=== PATIENT | female | born 1955 | race American Indian/Alaskan Native ===

== ENCOUNTER 2019-07-06 10:04 | Outpatient (CLI) | payer OTHER ==
--- NOTE | 2019-07-06 11:21 | Mammography Report ---
DIGITAL BILATERAL DIAGNOSTIC MAMMOGRAM WITH CAD, 07/06/2019 INDICATION: History of left breast cancer status post left mastectomy and right breast augmentation. TECHNIQUE: Digital bilateral mammographic imaging was performed. Implant displaced views were perfor med on the right. This examination was interpreted with the benefit of Computer-aided Detection randi sis. COMPARISON: 06/05/2018 Breast Density: The right breast is heterogeneously dense, which may obscure small masses. FINDINGS: No mass, architectural distortion or suspicious calcifications. Bilateral implants in place . IMPRESSION: No mammographic evidence of malignancy. Follow up recommendation: Routine BI-RADS Category 2: Benign. A "normal" or negative report should not discourage follow up or biopsy of a clinically significant f inding. A written summary of these findings will be mailed to the patient. The patient will be entered into a mammography reporting system which will generate a reminder letter for the patient's next appointmen t at the appropriate interval. According to the [employer], yearly mammograms are recommended starting at age 40 and continuing as long as a woman is in good health. Breast MRI is recommended for women with an logan roximately 20-25% or greater lifetime risk of breast cancer, including women with a strong family his tory of breast or ovarian cancer and women who have been treated for Hodgkin's disease. Signer Name: Kayode Dickerson MD Signed: 07/06/2019 11:17 AM Workstation Name: [id number]
== END 2019-07-06 10:05 | disposition home or self-care (01) ==
LOC: MAMMO 10:04
DX: R92.8 Other abnormal and inconclusive findings on diagnostic imaging of breast (principal); Z90.12 Acquired absence of left breast and nipple; Z85.3 Personal history of malignant neoplasm of breast
CPT/HCPCS: 77066

== ENCOUNTER 2019-08-06 10:36 | Emergency (ER) | payer OTHER ==
[2019-08-06 10:50] VITALS: BP 143/86
--- NOTE | 2019-08-06 11:44 | Cat Scan Report ---
CT HEAD WITHOUT CONTRAST INDICATION : dizziness/headache after fall. TECHNIQUE: Axial, coronal and sagittal CT imaging was performed from the skull apex through the skul l base without contrast. All CT scans at this location are performed using CT dose reduction for ALA RA by means of automated exposure control. COMPARISON: None available. FINDINGS: PARENCHYMA: No mass, midline shift, hemorrhage, extraaxial collection or acute territorial infarctio n. Basal ganglial calcifications are seen bilaterally. VENTRICLES: No significant abnormality. SOFT TISSUES: Soft tissues including the orbits appear normal. BONES: No acute osseous abnormality. SINUSES: No significant abnormality. ADDITIONAL FINDINGS: None. IMPRESSION: No acute intracranial abnormality. Signer Name: Luiz Vanessa MD Signed: 08/06/2019 11:40 AM Workstation Name: [id number]
--- NOTE | 2019-08-06 13:17 | Cat Scan Report ---
CT CERVICAL SPINE WITHOUT CONTRAST HISTORY: Pain after fall. COMPARISON: None TECHNIQUE: CT images of the cervical spine were obtained without contrast. Sagittal and coronal refo rmats were post-processed. Note: All CT scans at this location are performed using CT dose reduction employed for ALARA by means of automated exposure control. CONTRAST: None. FINDINGS: Alignment: Normal. Vertebrae:No significant abnormality. Disc Spaces: No significant abnormality allowing for lack of intrathecal contrast. Facet Joints:No significant abnormality. Craniocervical Junction:No significant abnormality. Prevertebral Soft Tissues:No significant abnormality. Lung Apices: No significant abnormality. Additional Findings: None IMPRESSION: 1. No significant abnormality. Signer Name: Kayode Dickerson MD Signed: 08/06/2019 1:13 PM Workstation Name: [id number]
--- NOTE | 2019-08-06 13:32 | Emergency Department Report ---
ED Fall HPI - General Chief Complaint: Fall Stated Complaint: FALL, LUMP ON HEAD Time Seen by Provider: 08/06/19 13:05 Source: patient Mode of arrival: Ambulatory - History of Present Illness Initial Comments: Patient is 63 years old female presented to the ER for evaluation after a fall. Patient stated that she fell over a hover board. Patient denied any loss of consciousness, nausea, vomiting or dizziness. Patient is complaining of pain to the back of the head and neck pain. Patient denied any other injuries. Family stated that patient was a little bit confused after the fall but now patient is alert, oriented 3 in in no acute distress. Complaint: fall -: This morning Fall Witnessed: yes, by family Location: head, neck Context: tripped/slipped - Related Data Allergies Allergy/AdvReac Type Severity Reaction Status Date / Time No Known Allergies Allergy Unverified 05/16/18 08:22 ED Review of Systems ROS: Stated complaint: FALL, LUMP ON HEAD Other details as noted in HPI Comment: All other systems reviewed and negative Constitutional: denies: chills Respiratory: denies: cough, shortness of breath Cardiovascular: denies: chest pain, palpitations Musculoskeletal: denies: back pain Neurological: denies: headache, weakness, numbness, paresthesias, confusion, abnormal gait ED Past Medical Hx - Past Medical History Previous Medical History?: Yes Hx Hypertension: Yes Hx of Cancer: Yes (breast) Hx Asthma: Yes Additional medical history: vertigo - Surgical History Past Surgical History?: Yes Hx Breast Surgery: Yes Additional Surgical History: x 5 - Social History Smoking Status: Never Smoker Substance Use Type: None ED Physical Exam - General Limitations: No Limitations General appearance: alert, in no apparent distress - Head Head exam: Present: atraumatic, normocephalic, normal inspection - Eye Eye exam: Present: normal appearance, PERRL - ENT ENT exam: Present: normal exam, normal orophraynx, mucous membranes moist - Neck Neck exam: Present: normal inspection, full ROM. Absent: tenderness, meningismus, lymphadenopathy, thyromegaly - Respiratory Respiratory exam: Present: normal lung sounds bilaterally - Cardiovascular Cardiovascular Exam: Present: regular rate, normal rhythm, normal heart sounds - GI/Abdominal GI/Abdominal exam: Present: soft, normal bowel sounds. Absent: distended, tenderness, guarding, rebound, rigid, organomegaly, mass, bruit, pulsatile mass, hernia - Extremities Exam Extremities exam: Present: normal inspection, full ROM, normal capillary refill. Absent: tenderness, pedal edema, joint swelling, calf tenderness - Back Exam Back exam: Present: normal inspection, full ROM. Absent: CVA tenderness (R), CVA tenderness (L), muscle spasm, paraspinal tenderness, vertebral tenderness - Neurological Exam Neurological exam: Present: alert, oriented X3, CN II-XII intact, normal gait, reflexes normal - Psychiatric Psychiatric exam: Present: normal mood - Skin Skin exam: Present: warm, intact, normal color ED Course Vital Signs 08/06/19 10:48 Temperature 98.9 F Pulse Rate 77 Respiratory 16 Rate Blood Pressure 143/86 O2 Sat by Pulse 96 Oximetry ED Medical Decision Making - Radiology Data Radiology results: report reviewed - Medical Decision Making Patient is 63 years old female presented to the ER for evaluation after a fall. Patient stated that she fell over a hover board. Patient denied any loss of consciousness, nausea, vomiting or dizziness. Patient is complaining of pain to the back of the head and neck pain. Patient denied any other injuries. Family stated that patient was a little bit confused after the fall but now patient is alert, oriented 3 in in no acute distress. Patient remained stable in the ER. Patient is alert and oriented 3. CT brain and CT cervical neck is negative for acute finding. Patient advised to follow- up with her primary care physician in the next 2-3 days and to return to the ER if she developed any new symptoms. Critical care attestation.: If time is entered above; I have spent that time in minutes in the direct care of this critically ill patient, excluding procedure time. ED Disposition Clinical Impression: Fall, Head injury, Neck pain Disposition: -01 TO HOME OR SELFCARE Is pt being admited?: No Condition: Stable Instructions: Minor Head Injury (ED), Fall Prevention (ED) Referrals: PRIMARY CARE,MD [Primary Care Provider] - 3-5 Days
== END 2019-08-06 13:45 | disposition home or self-care (01) ==
LOC: ED 10:36
DX: S09.90XA Unspecified injury of head, initial encounter (principal); M54.2 Cervicalgia; I10 Essential (primary) hypertension; J45.909 Unspecified asthma, uncomplicated; Z98.890 Other specified postprocedural states; Z85.3 Personal history of malignant neoplasm of breast; W01.0XXA Fall on same level from slipping, tripping and stumbling without subsequent striking against object, initial encounter; Y93.89 Activity, other specified; Y92.89 Other specified places as the place of occurrence of the external cause; Y99.8 Other external cause status
CPT/HCPCS: 70450; 72125

== ENCOUNTER 2020-03-05 04:41 | Emergency (ER) | payer OTHER ==
[2020-03-05 05:37] LABS: Basophils # (Auto) 0.1 K/mm3 (0.0-0.1); Eosinophils # (Auto) 0.3 K/mm3 (0.0-0.4); Eosinophils % (Auto) 4.1 % (0.0-4.3); Hematocrit 27.6 % (30.3-42.9); Hemoglobin 8.8 gm/dl (10.1-14.3); Lymphocytes # (Auto) 0.8 K/mm3 (1.2-5.4); Lymphocytes % (Auto) 10.8 % (13.4-35.0); Mean Corpuscular HGB Conc 32 % (30-34); Mean Corpuscular Volume 77 fl (79-97); Monocytes # (Auto) 0.8 K/mm3 (0.0-0.8); Monocytes % (Auto) 10.3 % (0.0-7.3); Platelet Count 349 K/mm3 (140-440); Red Blood Count 3.59 M/mm3 (3.65-5.03); Red Cell Distribution Width 16.7 % (13.2-15.2)
[2020-03-05 05:58] LABS: Alanine Aminotransferase 6 units/L (7-56); Albumin 4.1 g/dL (3.9-5); BUN/Creatinine Ratio 20; Blood Urea Nitrogen 16 mg/dL (7-17); Calcium 9.4 mg/dL (8.4-10.2); Hemolysis Index 5
[2020-03-05 07:30] LABS: Bacteria,Urine 2+ /HPF (Negative); Bilirubin,Urine NEG (Negative); Blood,Urine SM (Negative); Color,Urine Yellow (Yellow); Mucus,Urine FEW /HPF; Protein,Urine <15 mg/dL mg/dL (Negative); Urobilinogen,Urine < 2.0 mg/dL (<2.0)
[2020-03-05] MEDS ORDERED: ONDANSETRON 4 MG/2 ML INJ IV ONE (08:33)
[2020-03-05] MEDS ORDERED: MORPHINE 4 MG/1 ML INJ IV ONE (08:33)
--- NOTE | 2020-03-05 08:36 | Emergency Department Report ---
ED Abdominal Pain HPI - General Chief Complaint: Abdominal Pain Stated Complaint: HERNIA,SWELLING IN THE LEFT LEG Time Seen by Provider: 03/05/20 08:03 Source: patient, family Mode of arrival: Ambulatory Limitations: No Limitations - History of Present Illness Initial Comments: Patient is 64 years old female with history of hypertension and asthma. Patient presented to the ER complaining of abdominal pain and right groin swelling. Patient stated that the knot started approximately July 2019 but for the last few days it became more swollen and tender. Patient rated her pain as 10 out of 10. Patient denied any nausea or vomiting. No chest pain or shortness of breath. Patient also denied any fever or chills. Patient is complaining of left leg swelling started 3 days ago. Patient denied any recent immobilization. MD Complaint: abdominal pain - Related Data Previous Rx's Medication Instructions Recorded Last Taken Type Naproxen [Naprosyn] 500 mg PO BID #14 tablet 08/06/19 Unknown Rx Allergies Allergy/AdvReac Type Severity Reaction Status Date / Time No Known Allergies Allergy Unverified 05/16/18 08:22 ED Review of Systems ROS: Stated complaint: HERNIA,SWELLING IN THE LEFT LEG Other details as noted in HPI Comment: All other systems reviewed and negative Constitutional: denies: chills, fever Respiratory: denies: cough, shortness of breath, SOB with exertion, SOB at rest, wheezing Cardiovascular: denies: chest pain, palpitations Gastrointestinal: abdominal pain. denies: nausea, vomiting, diarrhea, constipation, hematemesis, melena, hematochezia Musculoskeletal: denies: back pain ED Past Medical Hx - Past Medical History Previous Medical History?: Yes Hx Hypertension: Yes Hx Asthma: Yes Additional medical history: vertigo - Surgical History Past Surgical History?: Yes Hx Breast Surgery: Yes Additional Surgical History: x 5 - Social History Smoking Status: Never Smoker Substance Use Type: None - Medications Home Medications: Home Medications Medication Instructions Recorded Confirmed Last Taken Type Naproxen [Naprosyn] 500 mg PO BID #14 tablet 08/06/19 Unknown Rx ED Physical Exam - General Limitations: No Limitations General appearance: alert, in no apparent distress - Head Head exam: Present: atraumatic, normocephalic, normal inspection - Eye Eye exam: Present: normal appearance - ENT ENT exam: Present: normal exam, normal orophraynx, mucous membranes moist - Neck Neck exam: Present: normal inspection, full ROM. Absent: tenderness, meningismus, lymphadenopathy, thyromegaly - Respiratory Respiratory exam: Present: normal lung sounds bilaterally - Cardiovascular Cardiovascular Exam: Present: regular rate, normal rhythm, normal heart sounds - GI/Abdominal GI/Abdominal exam: Present: soft, tenderness (Right groin area.), normal bowel sounds, mass (Right groin area). Absent: distended, guarding, rebound, rigid - Extremities Exam Extremities exam: Present: normal inspection, pedal edema (Left leg) - Back Exam Back exam: Present: normal inspection, full ROM. Absent: CVA tenderness (R), CVA tenderness (L), muscle spasm, paraspinal tenderness, vertebral tenderness, rash noted - Neurological Exam Neurological exam: Present: alert, oriented X3, CN II-XII intact, normal gait, reflexes normal - Psychiatric Psychiatric exam: Present: normal mood - Skin Skin exam: Present: warm, intact, normal color ED Course Vital Signs 03/05/20 03/05/20 03/05/20 04:48 08:16 08:31 Temperature 99.0 F Pulse Rate 107 H 85 Respiratory 18 17 21 Rate Blood Pressure 120/74 106/69 Blood Pressure [Left] O2 Sat by Pulse 96 97 Oximetry 03/05/20 03/05/20 03/05/20 08:42 08:45 08:53 Temperature Pulse Rate 89 Respiratory 16 18 16 Rate Blood Pressure 106/69 Blood Pressure [Left] O2 Sat by Pulse 98 98 Oximetry 03/05/20 03/05/20 03/05/20 08:56 09:00 09:12 Temperature Pulse Rate 98 H 87 Respiratory 16 21 18 Rate Blood Pressure 104/64 Blood Pressure 106/68 [Left] O2 Sat by Pulse 98 93 Oximetry 03/05/20 03/05/20 03/05/20 09:15 09:31 09:45 Temperature Pulse Rate 86 83 80 Respiratory 19 18 18 Rate Blood Pressure 104/64 104/64 104/64 Blood Pressure [Left] O2 Sat by Pulse 94 94 93 Oximetry 03/05/20 03/05/20 10:00 10:37 Temperature Pulse Rate 80 68 Respiratory 18 16 Rate Blood Pressure 95/62 Blood Pressure 104/64 [Left] O2 Sat by Pulse 96 96 Oximetry ED Medical Decision Making - Lab Data Result diagrams: 03/05/20 05:22 03/05/20 05:22 - Radiology Data Radiology results: report reviewed - Medical Decision Making Patient is 64 years old female with history of hypertension and asthma. Patient presented to the ER complaining of abdominal pain and right groin swelling. Patient stated that the knot started approximately July 2019 but for the last few days it became more swollen and tender. Patient rated her pain as 10 out of 10. Patient denied any nausea or vomiting. No chest pain or shortness of breath. Patient also denied any fever or chills. Patient is complaining of left leg swelling started 3 days ago. Patient denied any recent immobilization. Patient received morphine, fentanyl and Zofran. Patient stated that pain is much better now. Labs reviewed and is unremarkable however CT abdomen and pel vis with IV contrast showed a right pelvic mass most likely originating from the ovary radiologist described as a ovarian neoplasm with extension into the pelvic area. Patient informed about her diagnosis and the urgent need to follow-up with her [facility] for further work-up. Patient is currently not vomiting. Patient advised to return to the ER if she develop any new symptoms or if her symptoms get worse. Critical care attestation.: If time is entered above; I have spent that time in minutes in the direct care of this critically ill patient, excluding procedure time. ED Disposition Clinical Impression: Abdominal pain, Ovarian neoplasm Disposition: DC-01 TO HOME OR SELFCARE Is pt being admited?: No Condition: Stable Instructions: Abdominal Pain (ED), Ovarian Cancer (ED) Referrals: PRIMARY CARE, [Primary Care Provider] - 3-5 Days
--- NOTE | 2020-03-05 09:31 | Vascular Lab Report ---
DUPLEX DOPPLER LOWER EXTREMITY VEINS, LEFT INDICATION / CLINICAL INFORMATION: Left leg swelling. TECHNIQUE: Duplex doppler imaging was performed through the veins of the left lower extremity using venous compr ession and other maneuvers. COMPARISON: None available. FINDINGS: LEFT COMMON FEMORAL VEIN: Negative. LEFT FEMORAL VEIN: Negative. LEFT POPLITEAL VEIN: Negative. LEFT CALF VEINS: Negative. ADDITIONAL FINDINGS: None. IMPRESSION: 1. No sonographic evidence for DVT in the left lower extremity. Signer Name: Juan Carlos Irvin MD Signed: 03/05/2020 9:26 AM Workstation Name: [id number]
--- NOTE | 2020-03-05 10:59 | Cat Scan Report ---
CT ABDOMEN AND PELVIS WITH IV CONTRAST INDICATION: Abdominal pain, groin swelling. COMPARISON: None available. TECHNIQUE: All CT scans at this facility use dose modulation, automated exposure control, iterative reconstructi on or weight based dosing, when appropriate, to reduce radiation dose to as low as reasonably achieva ble. FINDINGS: Lung Bases: Lung bases are clear. There are couple right cardiophrenic lymph nodes which are not path ologically enlarged. There is trace pericardial fluid. Skeletal System: No acute abnormality. ABDOMEN: Liver: No significant abnormality. Gallbladder: No significant abnormality. Bile Ducts: No significant abnormality. Pancreas: No significant abnormality. Spleen: No significant abnormality. Adrenals: No significant abnormality. Right Kidney: There is mild right hydroureteronephrosis which appears subacute. Left Kidney: There is mild left hydroureteronephrosis which appears subacute. Upper GI tract: No significant abnormality. Lymph Nodes: There is mild retroperitoneal adenopathy. Shotty mesenteric nodes are noted. Aorta: No significant abnormality. Additional Findings: There is mild ascites./Peritoneal nodules are seen in the left upper quadrant wi th associated surrounding stranding (axial series 2 images 42-64). Within the lower abdomen right of midline and at the midline suprapubic region there is extensive cystic and solid mass which measures approximately 16 x 14 cm on image 118. PELVIS: Colon: No acute abnormality. Urinary Bladder and Distal Ureters: No significant abnormality. Appendix: No significant abnormality. Lymph Nodes: There is an enlarged, hypodense right groin node. There is extensive left iliac chain ad enopathy. Additional Findings: There is a complex cystic and solid lesion within the posterior right hemipelvis involving the cul-de-sac. IMPRESSION: 1. Cystic and solid lesion within the right hemipelvis is consistent with ovarian neoplasm. There is extensive carcinomatosis within the lower abdomen, as described above. It is difficult to separate c arcinomatosis from the primary mass in the right lower quadrant/right hemipelvis. There is also carci nomatosis in the left upper quadrant. There is retroperitoneal and pelvic adenopathy, as above. There is only trace ascites. 2. Carcinomatosis/neoplasm resulting in mild bilateral hydroureteronephrosis due to extrinsic compre ssion of the distal ureters. 3. Additional incidental findings as above. Signer Name: Juan Carlos Irvin MD Signed: 03/05/2020 10:54 AM Workstation Name: [id number]
[2020-03-05] MEDS ORDERED: fentaNYL 100 MCG/2 ML INJ ONE ×2 (11:14→12:29)
[2020-03-05] MEDS ORDERED: fentaNYL 250 MCG/5 ML INJ IV ONE ×2 (12:04→12:30)
[2020-03-05] MEDS ORDERED: KETOROLAC 30 MG/1 ML INJ ONE (12:29)
[2020-03-05] MEDS ORDERED: fentaNYL 100 MCG/2 ML INJ IV ONE (13:00)
[2020-03-05 19:22] VITALS: BP 134/68
== END 2020-03-05 11:00 | disposition home or self-care (01) ==
LOC: ED 04:41
DX: C56.9 Malignant neoplasm of unspecified ovary (principal); I10 Essential (primary) hypertension; J45.909 Unspecified asthma, uncomplicated; Z79.899 Other long term (current) drug therapy
CPT/HCPCS: 36415; 74177; 80053; 81001; 85025; 93971; 96374; 96375; 99284; J2270; J2405; J3010; Q9967; J1885

== ENCOUNTER 2020-07-11 10:16 | Outpatient (CLI) | payer OTHER ==
--- NOTE | 2020-07-11 16:00 | Mammography Report ---
DIGITAL SCREENING MAMMOGRAM WITH CAD, 07/11/2020 CLINICAL INFORMATION / INDICATION: Routine screening mammography. The patient has a personal history of left breast cancer treated with mastectomy. TECHNIQUE: Digital bilateral 2D mammography was obtained in the craniocaudal and mediolateral obliqu e projections. This examination was interpreted with the benefit of Computer-Aided Detection analysis . COMPARISON: 07/06/2019, 05/16/2018 FINDINGS: Breast Density: There are scattered areas of fibroglandular density. No dominant mass, suspicious calcifications, or architectural distortion in either breast. There has been previous left mastectomy and reconstruction with retropectoral implant. A right retrop ectoral implant is also present. IMPRESSION: No mammographic evidence of malignancy. Follow up recommendation: Routine yearly BI-RADS Category 2: Benign. A "normal" or negative report should not discourage follow up or biopsy of a clinically significant f inding. A written summary of these findings will be mailed to the patient. The patient will be entered into a mammography reporting system which will generate a reminder letter for the patient's next appointmen t at the appropriate interval. The [employer] recommends yearly mammograms starting at age 40 and continuing as l sean as a woman is in good health. Breast MRI is recommended for women with an approximate 20-25% or greater lifetime risk of breast cancer, including women with a strong family history of breast or [place] cancer or who have been treated for Hodgkin's disease. Signer Name: Lolis Meyers MD Signed: 07/11/2020 3:56 PM Workstation Name: [id number]
== END 2020-07-11 10:17 | disposition home or self-care (01) ==
LOC: MAMMO 10:16
PROVIDERS: ATTEND Family Medicine
DX: Z12.31 Encounter for screening mammogram for malignant neoplasm of breast (principal); Z90.12 Acquired absence of left breast and nipple
CPT/HCPCS: 77067

== ENCOUNTER 2022-02-19 07:31 | Outpatient (CLI) | payer OTHER ==
--- NOTE | 2022-02-19 08:18 | Mammography Report ---
DIGITAL DIAGNOSTIC MAMMOGRAM , 02/19/2022 CLINICAL INFORMATION / INDICATION: 66-year-old female with personal history of left breast cancer, st atus post mastectomy. R92.8 TECHNIQUE: Digital bilateral mammographic imaging was performed. COMPARISON: Prior mammogram 07/11/2020 FINDINGS: Breast Density: There are scattered areas of fibroglandular density. No dominant mass, suspicious calcifications or architectural distortion in either breast. Patient has left mastectomy with implant reconstruction. Bilateral silicone retropectoral breast impl ants are present. IMPRESSION: No mammographic evidence of malignancy. Follow up recommendation: Routine yearly screening mammogram. - The ACR recommends yearly screening MRI in patients with a personal history of breast cancer who tsai ve dense fibroglandular tissue as well in patients who were diagnosed with breast cancer under the ag e of 50. BI-RADS Category 2: BENIGN. A "normal" or negative report should not discourage follow up or biopsy of a clinically significant f inding. A written summary of these findings will be mailed to the patient. The patient will be entered into a mammography reporting system which will generate a reminder letter for the patient's next appointmen t at the appropriate interval. According to the [employer], yearly mammograms are recommended starting at age 40 and continuing as long as a woman is in good health. Breast MRI is recommended for women with an logan roximately 20-25% or greater lifetime risk of breast cancer, including women with a strong family his tory of breast or ovarian cancer and women who have been treated for Hodgkin's disease. Signer Name: Lalita Vergara MD Signed: 02/19/2022 8:14 AM Workstation Name: [id number]
== END 2022-02-19 07:32 | disposition home or self-care (01) ==
LOC: MAMMO 07:31
PROVIDERS: ATTEND Family Medicine
DX: R92.8 Other abnormal and inconclusive findings on diagnostic imaging of breast (principal); Z90.12 Acquired absence of left breast and nipple
CPT/HCPCS: 77066